=== PATIENT | male | born 1980 | race Hispanic/Latino ===

== ENCOUNTER 2025-10-04 11:46 | Outpatient (CLI) | payer BC | END 2025-10-04 11:47 | disposition home or self-care (01) | LOC: SCSRAD 11:46 | PROVIDERS: ATTEND Orthopaedic Surgery Orthopaedic Surgery of the Spine | DX: M50.20 Other cervical disc displacement, unspecified cervical region (principal); M50.31 Other cervical disc degeneration, high cervical region; M50.321 Other cervical disc degeneration at C4-C5 level; M47.812 Spondylosis without myelopathy or radiculopathy, cervical region; Z98.1 Arthrodesis status | CPT/HCPCS: 72040 ==